=== PATIENT | female | born 1975 | race Caucasian/White ===

== ENCOUNTER 2018-01-07 11:04 | Outpatient (CLI) | payer BC ==
--- NOTE | 2018-01-07 12:20 | ULT ---
VENOUS DUPLEX DOPPLER ULTRASOUND LEFT LOWER EXTREMITY: CPT: 06996 ICD-10-PCS: B54D INDICATIONS: Edema. TECHNIQUE: Color-flow Doppler, spectral wave-form analysis of pulsed Doppler, and parson-scale imaging with compre ssion and augmentation were used to evaluate the bilateral common femoral, femoral, popliteal, nuclear scientist ior tibial, and superficial femoral veins, and the proximal portions of the profunda femoral and grea ter saphenous veins. FINDINGS: Appropriate compressibility and flow within the imaged deep venous system of the left lower extremity without evidence of deep venous thrombosis. IMPRESSION: No deep venous thrombosis of the imaged left lower extremity. POS: MARY
== END 2018-01-07 11:05 | disposition home or self-care (01) ==
LOC: SCSULT 11:04
PROVIDERS: ATTEND Orthopaedic Surgery
DX: M79.662 Pain in left lower leg (principal); M79.89 Other specified soft tissue disorders

== ENCOUNTER 2018-01-28 15:36 | Outpatient (CLI) | payer BC ==
--- NOTE | 2018-01-28 16:26 | ULT ---
VENOUS DUPLEX SONOGRAM LEFT LOWER EXTREMITY: History: Left leg pain and edema. FINDINGS: The left common femoral vein and greater saphenous junction were evaluated along with the femoral, de ep femoral, popliteal, and posterior tibial veins. There is good color and spectral doppler flow and compression. IMPRESSION: No sonographic evidence of DVT within the left lower extremity. POS: LESLIE
== END 2018-01-28 15:37 | disposition home or self-care (01) ==
LOC: SCSULT 15:36
PROVIDERS: ATTEND Orthopaedic Surgery
DX: M79.662 Pain in left lower leg (principal); M79.89 Other specified soft tissue disorders

== ENCOUNTER 2018-06-11 10:54 | Outpatient (CLI) | payer BC | END 2018-06-11 10:55 | disposition home or self-care (01) | LOC: BICMAMMO 10:54 | PROVIDERS: ATTEND Obstetrics & Gynecology | DX: Z12.31 Encounter for screening mammogram for malignant neoplasm of breast (principal) | CPT/HCPCS: 77063; 77067 ==

== ENCOUNTER 2018-09-17 15:37 | Emergency (ER) | payer BC ==
[2018-09-17 16:07] LABS: Bilirubin Negative (Negative); Blood, Urine Negative (Negative); Glucose, Urine (Dipstick) 500 mg/dL (Negative); Leukocyte Negative (Negative); Nitrite Negative (Negative); Protein, Urine (Dipstick) Negative (Neg-Trace); Specific Gravity, Urine 1.015 (1.005-1.030); Urobilinogen 0.2 mg/dL (0.2-1.0); pH, Urine 5.5 (5.0-9.0)
[2018-09-17 16:13] LABS: #Basophils 0.1 thou/uL (0.0-0.2); #Eosinphils 0.1 thou/uL (0.0-0.7); #Monocytes 0.4 thou/uL (0.11-0.59); #Neutrophils 8.9 thou/uL (1.40-6.50); %Basophils 0.5 % (0.0-1.0); %Eosinophils 0.5 % (0.0-10.0); %Lymphocytes 17.6 % (21.0-51.0); %Monocytes 3.8 % (0.0-10.0); %Neutrophils 77.5 % (42.0-75.0); Hemoglobin 12.8 g/dL (12.0-16.0); Mean Corpuscular HGB CONC 31.4 g/dL (32.0-36.0); Mean Corpuscular Hemoglobin 28.2 pg (27.0-31.0); Mean Corpuscular Volume 89.6 fL (78.0-98.0); Mean Platelet Volume 8.7 fL (7.4-10.4); Platelet Count 270 thou/uL (130-400); RBC Distribution Width 14.2 % (11.5-14.5); Red Blood Cell (RBC) Count 4.54 mill/uL (4.20-5.40); White Blood Cell (WBC) Count 11.4 thou/uL (4.8-10.8)
[2018-09-17 16:19] LABS: Clarity Hazy (Clear)
[2018-09-17 16:29] LABS: ALT (SGPT) 14 U/L (8-55); AST (SGOT) 10 U/L (5-34); Alkaline Phosphatase 104 U/L (40-150); Anion Gap 15 mmol/L (10-20); BUN (Urea Nitrogen) 11 mg/dL (7.0-18.7); Bilirubin, Total 1.3 mg/dL (0.2-1.2); Calc. Creatinine Clearance 0 mL/min (70-130); Carbon Dioxide 20 mmol/L (22-29); Chloride 103 mmol/L (98-107); Estimated GFR-MDRD 74; Globulin 3.1 g/dL (2.4-3.5); Glucose 410 mg/dL (70-105); Potassium 3.9 mmol/L (3.5-5.1); Protein, Total 7.1 g/dL (6.0-8.3); Sodium 134 mmol/L (136-145)
== END 2018-09-17 16:51 | disposition home or self-care (01) ==
LOC: SCSER 15:37
DX: E11.65 Type 2 diabetes mellitus with hyperglycemia (principal)
CPT/HCPCS: 36416; 80053; 81003; 85025; 99284

== ENCOUNTER 2018-10-25 06:25 | Emergency (ER) | payer BC ==
[2018-10-25] MEDS ORDERED: HYDROcodone/Acetaminophen 5/325 mg Tablet ONE (07:05)
[2018-10-25] MEDS ORDERED: Cipro 250 MG TAB ONE (07:05)
== END 2018-10-25 07:13 | disposition home or self-care (01) ==
LOC: SCSER 06:25
DX: H60.93 Unspecified otitis externa, bilateral (principal); E10.9 Type 1 diabetes mellitus without complications; G43.909 Migraine, unspecified, not intractable, without status migrainosus; Z79.899 Other long term (current) drug therapy
CPT/HCPCS: 99282

== ENCOUNTER 2018-10-27 06:26 | Emergency (ER) | payer BC ==
[2018-10-27] MEDS ORDERED: Morphine 4 MG/ML VIAL ONE (07:20)
[2018-10-27 07:26] LABS: #Basophils 0.1 thou/uL (0.0-0.2); #Eosinphils 0.1 thou/uL (0.0-0.7); #Lymphocytes 2.1 thou/uL (1.20-3.40); #Monocytes 0.6 thou/uL (0.11-0.59); #Neutrophils 5.6 thou/uL (1.40-6.50); %Basophils 1.2 % (0.0-1.0); %Eosinophils 1.7 % (0.0-10.0); %Lymphocytes 25.1 % (21.0-51.0); %Monocytes 6.5 % (0.0-10.0); %Neutrophils 65.5 % (42.0-75.0); Hemoglobin 13.8 g/dL (12.0-16.0); Mean Corpuscular HGB CONC 33.5 g/dL (32.0-36.0); Mean Corpuscular Hemoglobin 29.3 pg (27.0-31.0); Mean Corpuscular Volume 87.5 fL (78.0-98.0); Mean Platelet Volume 9.3 fL (7.4-10.4); Platelet Count 288 thou/uL (130-400); RBC Distribution Width 13.2 % (11.5-14.5); Red Blood Cell (RBC) Count 4.72 mill/uL (4.20-5.40); White Blood Cell (WBC) Count 8.5 thou/uL (4.8-10.8)
[2018-10-27 07:40] LABS: ALT (SGPT) 13 U/L (8-55); AST (SGOT) 12 U/L (5-34); Albumin 3.9 g/dL (3.5-5.0); Alkaline Phosphatase 103 U/L (40-150); Anion Gap 13 mmol/L (10-20); BUN (Urea Nitrogen) 7 mg/dL (7.0-18.7); Calc. Creatinine Clearance 0 mL/min (70-130); Calcium 9.6 mg/dL (7.8-10.44); Carbon Dioxide 24 mmol/L (22-29); Chloride 103 mmol/L (98-107); Estimated GFR-MDRD 89; Globulin 3.2 g/dL (2.4-3.5); Glucose 132 mg/dL (70-105); Potassium 3.4 mmol/L (3.5-5.1); Protein, Total 7.1 g/dL (6.0-8.3); Sodium 137 mmol/L (136-145)
[2018-10-27] MEDS ORDERED: Ondansetron PF 4 MG/2 ML Vial ONE (08:37)
--- NOTE | 2018-10-27 08:51 | CT ---
CT of the face with contrast INDICATION: Bilateral otitis externa Contrast: 99 cc of [id number] COMPARISON: None. FINDINGS: There is prominent soft tissue opacification occluding the lateral one half of the left ext ernal ear canal. There is mild soft tissue swelling surrounding the right external auditory canal. The right external auditory canal remains patent. There is a small amount of fluid density seen layer ing within the posterior aspect of the left middle ear cavity. The right middle ear cavity is clear. The mastoid air cells are clear. The paranasal sinuses are clear. Visualized intracranial cont ents are within normal limits. The parotid and submandibular glands are within normal limits. The security police officer space is within normal limits. The parapharyngeal fat plane is within normal limits. Visua lized aspects of the nasal and oropharynx appear within normal limits. The orbits are normal appearing. No acute osseous abnormality is demonstrated. IMPRESSION: Bilateral otitis externa without drainable fluid collection. No destructive osteolytic pr ocess is seen involving the external auditory canal or middle ear region. There is a small amount of fluid within the left middle ear cavity which may reflect an effusion or possibly otitis media.
[2018-10-27] MEDS ORDERED: Iopamidol 370 76% 100 ML VIAL ONE (09:00)
== END 2018-10-27 09:05 | disposition home or self-care (01) ==
LOC: SCSER 06:26
DX: H60.93 Unspecified otitis externa, bilateral (principal); E10.9 Type 1 diabetes mellitus without complications; G43.909 Migraine, unspecified, not intractable, without status migrainosus; Z79.891 Long term (current) use of opiate analgesic; Z79.899 Other long term (current) drug therapy
CPT/HCPCS: 70487; 80053; 83605; 85025; 96374; 96375; J2270; J2405; Q9967